=== PATIENT | female | born 1955 | race Caucasian/White ===

== ENCOUNTER → 2017-12-02 | Outpatient (CLI) | payer OTHER | LOC: RAD 16:25 | DX: M41.85 Other forms of scoliosis, thoracolumbar region (principal); M40.294 Other kyphosis, thoracic region; Z91.81 History of falling ==

== ENCOUNTER → 2018-02-26 | Outpatient (CLI) | payer OTHER | LOC: CAT 09:16 | DX: Z13.6 Encounter for screening for cardiovascular disorders (principal) ==